=== PATIENT | female | born 1970 | race Caucasian/White ===

== ENCOUNTER 2019-09-02 09:07 | Emergency (ER) | payer SELFPAY ==
[~2019-09-02] VITALS: Ht 162.6 cm; Wt 74.4 kg
[~2019-09-02 09:07] MED LIST: IBU600 M1 PO; KEFLEX500 MG PO
[2019-09-02 09:26] VITALS: Ht 162.6 cm; Wt 74.4 kg
[2019-09-02 10:53] VITALS: BP 124/57
== END 2019-09-02 10:53 | disposition home or self-care (01) ==
LOC: ED 09:07
DX: J11.1 Influenza due to unidentified influenza virus with other respiratory manifestations (principal); I10 Essential (primary) hypertension; E11.9 Type 2 diabetes mellitus without complications
CPT/HCPCS: J1885